=== PATIENT | male | born 1960 | race American Indian/Alaskan Native ===

== ENCOUNTER 2017-07-13 20:19 | Emergency (ER) | payer MEDICARE, MEDICAID ==
[2017-07-13 20:25] VITALS: BMI 35.4
[2017-07-13] MEDS ORDERED: Piperacill/Tazo 4.5gm in NS 4.5 GM/100 ML BAG IVPB STA (20:41)
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
[2017-07-13 21:56] LABS: ALB/GLOB RATIO 0.9 (1.1-1.8); ALBUMIN 3.8 g/dL (3.0-4.8); ALT/SGPT 30 U/L (7-56); AST/SGOT 35 U/L (17-59); BLOOD UREA NITROGEN 13 mg/dL (7-21); GFR AFRICAN-AMERICAN > 60; GFR NON-AFRICAN AMERICAN > 60
[2017-07-13 22:30] LABS: BASO # 0.02 K/mm3 (0.0-2.0); BASO % 0.2 % (0.0-3.0); EOS # 0.1 (0.0-0.7); EOS % 0.8 % (1.5-5.0); GRAN # 4.9 (1.4-6.5); GRAN % 53.3 % (50.0-68.0); HEMOGLOBIN 14.7 g/dL (14.0-18.0); LYMPH # 3.6 (1.2-3.4); LYMPH % 38.6 % (22.0-35.0); MEAN CELL VOLUME 96.1 fl (80.0-105.0); MEAN CORPUSCULAR HEMOGLOBIN 31.7 pg (25.0-35.0); MEAN PLATELET VOLUME 9.7 fl (7.0-11.0); MONO # 0.7 (0.1-0.6); MONO % 7.1 % (1.0-6.0); RBC 4.64 10^6/uL (3.5-6.1); RED CELL DISTRIBUTION WIDTH 12.9 % (11.5-14.5); WHITE BLOOD COUNT 9.2 10^3/ul (4.5-11.0)
[2017-07-13] MEDS: Vancomycin 1gm in NS 250ml 1 GM/250 ML BAG IVPB STA (23:08)
--- NOTE | 2017-07-14 00:06 | CT ---
EXAM: CT Pelvis With Intravenous Contrast EXAM DATE/TIME: 07/13/2017 8:43 PM CLINICAL HISTORY: 56 years old, male; Pain; Other: R/O rectal abscess; Prior surgery; Surgery type: Hernia repair; Additional info: Pain/abscess. R/O rectal abscess TECHNIQUE: Axial computed tomography images of the pelvis with intravenous contrast. All CT scans at this facility use one or more dose reduction techniques, viz.: automated exposure control; ma/kV adjustment per patient size (including targeted exams where dose is matched to indication; i.e. head); or iterative reconstruction technique. Coronal and sagittal reformatted images were created and reviewed. CONTRAST: 120 mL of OMNI 350 administered intravenously. COMPARISON: There are no prior studies for comparison. FINDINGS: Kidneys and ureters: Lower poles of the kidneys are unremarkable. There is no ureterectasis. Bowel: There is a nonobstructive gas pattern in the pelvis. Ileocecal region is unremarkable. Appendix and terminal ileum are unremarkable.There is scattered diverticulosis. There is left perirectal inflammation and edema. No discrete abscess is identified. Appendix: See stomach and bowel Intraperitoneal space: There is no free air or free fluid. Bladder: Bladder is partially distended. There is mild bladder wall thickening. Reproductive: Seminal vesicles and prostate are unremarkable. Bones/joints: There are degenerative changes in the bony structures. There is been resection of the left femoral head. There is subluxation of the femur relative to the pelvis. There is soft tissue and fat filling the left acetabulum. Left acetabulum is dysplastic. There is dystrophic ossification in soft tissues at the left hip. Soft tissues: There are clips in the right lower quadrant. There is mesh in the anterior abdominal wall. There is a small fat containing umbilical hernia. There is atrophy of the gluteus muscles bilaterally. There is atrophy of the left iliopsoas muscle. Vasculature: There are vascular calcifications. Lymph nodes: There is no pathologic adenopathy. IMPRESSION: Left perirectal inflammation/edema more suggestive of phlegmon than abscess; surgical resection of the left femoral head with subluxation of the proximal femur and dystrophic/dysplastic changes of the left acetabulum Additional findings as described above.
[2017-07-14 00:35] LABS: URINE BILIRUBIN NEGATIVE (NEGATIVE); URINE BLOOD NEGATIVE (NEGATIVE); URINE GLUCOSE (UA) NEGATIVE (NEGATIVE); URINE LEUKOCYTE ESTERASE NEGATIVE Leu/uL (NEGATIVE); URINE NITRATE POSITIVE (NEGATIVE); URINE PROTEIN NEGATIVE mg/dL (<30 mg/dL)
[2017-07-14 00:40] LABS: URINE APPEARANCE SL CLOUDY (CLEAR); URINE COLOR YELLOW (YELLOW)
[2017-07-14 00:45] LABS: URINE BACTERIA SMALL (NEG); URINE RBC 0 - 2 /hpf (0-2)
[2017-07-14] MEDS: Vancomycin 1gm in NS 250ml 1 GM/250 ML BAG IVPB STA (01:32)
[2017-07-14 06:41] VITALS: TEMP 97.7; O2SAT 98
[2017-07-14 07:39] VITALS: BP 149/80; PULSE 66; RESP 12
== END 2017-07-14 08:46 | disposition home or self-care (01) ==
LOC: ED 20:19
DX: L02.31 Cutaneous abscess of buttock (principal); N30.00 Acute cystitis without hematuria; I10 Essential (primary) hypertension; F17.210 Nicotine dependence, cigarettes, uncomplicated
CPT/HCPCS: 72193; 80053; 81001; 85025; 85651; 87086; 96365; 96366; 99285; J2543; Q9967